=== PATIENT | female | born 2000 | race Caucasian/White ===

== ENCOUNTER 2024-08-27 21:27 | Emergency (ER) | payer SELFPAY ==
[~2024-08-27] VITALS: Ht 165.1 cm; Wt 89.0 kg
[2024-08-27 21:42] VITALS: TEMP 36.7; O2SAT 99
[2024-08-27] MEDS: TETANUS, DIPHTHERIA, PERTUSSIS VAC/PF 0.5ML (>10YR OLD) IM ONE (22:45)
[2024-08-27 22:49] VITALS: BP 115/73; PULSE 85; RESP 18; O2SAT 100
== END 2024-08-27 22:55 | disposition home or self-care (01) ==
LOC: ER 21:27
DX: S61.411A Laceration without foreign body of right hand, initial encounter (principal); E11.9 Type 2 diabetes mellitus without complications; X58.XXXA Exposure to other specified factors, initial encounter; Y93.89 Activity, other specified; Y92.89 Other specified places as the place of occurrence of the external cause; Y99.8 Other external cause status
CPT/HCPCS: 90715; 12002; 90471; 99283; Z7610

== ENCOUNTER 2024-10-07 01:49 | Emergency (ER) | payer SELFPAY ==
[~2024-10-07] VITALS: Ht 160 cm; Wt 90.0 kg
[2024-10-07 02:36] VITALS: O2SAT 95
[2024-10-07 04:04] LABS: BASOPHILS % 0.4 % (0.0-2.0); HEMATOCRIT. 43.8 % (36.0-48.0); HEMOGLOBIN. 14.4 g/dL (12.0-16.0); MEAN CORPUSCULAR HEMOGLOBIN 28.2 pg (28.0-32.0); MEAN CORPUSCULAR HGB CONC 32.8 g/dL (31.0-37.0); MEAN CORPUSCULAR VOLUME 85.9 fL (81.0-99.0); MEAN PLATELET VOLUME 10.2 fl (7.4-10.4); MONOCYTES % 6.2 % (2.0-8.0); NEUTROPHILS % 55.4 % (40.0-76.0); PLATELET 232 x1000/uL (130-400); RED CELL DISTRIBUTION WIDTH 13.3 % (11.6-14.6); WHITE BLOOD COUNT 14.2 x1000/uL (4.5-11.0)
[2024-10-07 04:20] LABS: CHLORIDE 102 mEq/L (98-107); POTASSIUM 3.5 mEq/L (3.5-5.1); SODIUM 137 mEq/L (136-145)
[2024-10-07 04:21] LABS: CALCIUM 9.7 mg/dL (8.7-10.4); CARBON DIOXIDE 25 mEq/L (21-32)
[2024-10-07 04:26] LABS: CREATININE 0.8 mg/dL (0.6-1.0); GLUCOSE 196 mg/dL (70-105); UREA NITROGEN BLOOD 11 mg/dL (9-23)
[2024-10-07 04:31] LABS: TROPONIN I HIGH SENSITIVITY < 4 ng/L (3.0-34)
[2024-10-07] MEDS ORDERED: ACET-2708 MT (04:35)
[2024-10-07 04:46] VITALS: BP 127/86; PULSE 81; RESP 14; TEMP 36.9; O2SAT 100
== END 2024-10-07 04:50 | disposition home or self-care (01) ==
LOC: ER 01:49
DX: R07.89 Other chest pain (principal); E11.9 Type 2 diabetes mellitus without complications; Z96.659 Presence of unspecified artificial knee joint; Z79.899 Other long term (current) drug therapy
CPT/HCPCS: 36415; 71045; 80048; 84484; 85025; 93005; 99285